=== PATIENT | male | born 1990 | race African-American/Black ===

== ENCOUNTER 2017-05-03 14:18 | Day surgery (SDC) | payer OTHER ==
[2017-05-03 14:52] VITALS: BMI 23.7
[2017-05-03] MEDS ORDERED: oxyCODONE HCL 5 MG TABLET PO PRN (16:13)
[2017-05-03] MEDS ORDERED: ONDANSETRON 4 MG/2 ML VIAL IVPUSH PRN (16:13)
[2017-05-03] MEDS ORDERED: LIDOCAINE HCL 2% (20ML MULTI-DOSE VIAL) NR ONE (16:31)
[2017-05-03] MEDS ORDERED: MIDAZOLAM HCL 2 MG/2 ML SINGLE DOSE VIAL ONE (16:54)
[2017-05-03] MEDS ORDERED: PROPOFOL 20 ML ONE ×2 (17:03→17:04)
[2017-05-03] MEDS ORDERED: BUPIVACAINE HCL/PF 2.5 MG/ML - 30 ML VIAL IJ ONE (17:06)
[2017-05-03] MEDS ORDERED: ceFAZolin SODIUM 1 GM VIAL ONE (17:10)
[2017-05-03] MEDS ORDERED: KETOROLAC TROMETHAMINE 30 MG/1 ML VIAL ONE (17:10)
[2017-05-03] MEDS ORDERED: DEXAMETHASONE SOD PHOSPHATE 4 MG/1 ML VIAL ONE (17:10)
[2017-05-03] MEDS ORDERED: DESFLURANE GAS 240 ML BOTTLE IH ONE (17:23)
[2017-05-03] MEDS ORDERED: BUPIVACAINE HCL/PF 0.25% (2.5MG/ML) 10 ML VIAL IJ ONE (17:41)
[2017-05-03] MEDS ORDERED: oxyCODONE HCL 5 MG TABLET ONE (18:48)
[2017-05-03 19:33] VITALS: TEMP 98
[2017-05-03 19:51] VITALS: BP 133/67; PULSE 59
--- NOTE | 2017-05-04 11:13 | OP ---
DATE OF OPERATION: 05/03/2017 PREOPERATIVE DIAGNOSIS: Right long finger extensor tendon sagittal fiber injury with subluxation. POSTOPERATIVE DIAGNOSIS: Right long finger extensor tendon sagittal fiber injury with subluxation. OPERATIVE PROCEDURE: Right long finger extensor tendon reconstruction and realignment with centralization. SURGEON: Dom Gomes MD ANESTHESIA: General. COMPLICATIONS: None. ESTIMATED BLOOD LOSS: Minimal. OFFICE CLEANER: CLAUDE Lopez INDICATIONS FOR PROCEDURE: The patient is a 26-year-old male with the above finding indicated for operative treatment. Risks, benefits and alternatives were discussed with the patient at length. Proper informed consent was obtained. PROCEDURE: After proper identification of the patient and correct operative site, the patient was brought to the operating room and placed supine on the operating room table. All prominences were well padded. General anesthesia was provided by the anesthesiologist adequate for the procedure. The right upper extremity was prepped and draped in the usual sterile fashion. A well-padded tourniquet therefore was placed with a sterile prep. Esmarch bandage used to exsanguinate the right upper extremity. Tourniquet was inflated to 250 mmHg. A curvilinear incision was made over the dorsal aspect of the right long finger MP joint. The incision was taken sharply through skin with blunt and sharp dissection through subcutaneous tissues. The extensor coles was found to be ruptured along its radial aspect and the extensor tendon was subluxing in an ulnarward direction. This was debrided. There was abundant scar tissue in this area, as well. The ulnar sagittal fibers needed to be released partially in order to fully centralize the extensor tendon. Once it was centralized, an imbrication of the radial sagittal fiber was performed. The finger was then taken through a range of motion and no further subluxation occurred. The wound was irrigated with saline and repaired with a 5-0 nylon suture. Sterile dressings and an MP joint extension splint was placed. The patient was reversed from anesthesia and brought to the recovery room in stable condition. Randy Grant, the diagnostic assistant, was integral throughout the procedure. The procedure could not have been performed without a skilled operative diagnostic assistant. DOM GOMES M.D. [id number]
== END 2017-05-03 19:51 | disposition home or self-care (01) ==
LOC: FASU 14:18
PROVIDERS: ATTEND Orthopaedic Surgery Hand Surgery
PROC: 0LM70ZZ Reattachment of Right Hand Tendon, Open Approach (ICD-10-PCS; 2017-05-03)
PROC: 0LS70ZZ Reposition Right Hand Tendon, Open Approach (ICD-10-PCS; principal; 2017-05-03 17:18)
DX: S66.322A Laceration of extensor muscle, fascia and tendon of right middle finger at wrist and hand level, initial encounter (principal); X58.XXXA Exposure to other specified factors, initial encounter; Y93.9 Activity, unspecified; Y92.9 Unspecified place or not applicable